=== PATIENT | male | born 1975 | race Caucasian/White ===

== ENCOUNTER 2017-02-24 00:34 | Emergency (ER) | payer OTHER ==
[~2017-02-24] VITALS: Ht 180.3 cm; Wt 86.2 kg
--- NOTE | ~2017-02-24 | EKG ---
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
[2017-02-24 03:04] LABS: ABSOLUTE NEUTROPHILS 6.8 thou/uL (1.4-8.2); BASOPHILS 0.7 % (0.0-2.0); EOSINOPHILS 2.2 % (0.0-3.0); HEMOGLOBIN 16.6 gm/dL (14.0-18.0); LYMPHOCYTES 21.2 % (24.0-44.0); MCH 31.9 pg (26.0-34.0); MCHC 34.6 g/dL (28.0-37.0); MCV 92.2 fL (80.0-100.0); MONOCYTES 8.2 % (1.0-8.0); PLATELET COUNT 186 thou/uL (150-400); POLYS 67.7 % (36.0-66.0); RBC 5.21 mil/uL (4.50-6.00); RDW 12.8 % (10.5-14.5)
[2017-02-24 03:07] LABS: MANUAL DIFF NO
[2017-02-24 03:11] LABS: ANION GAP 9 mmol/L (7-16); BUN 5 mg/dL (7-18); CALCIUM 8.8 mg/dL (8.5-10.1); CHLORIDE 100 mmol/L (98-107); CO2 27 mmol/L (21-32); CREATININE 0.9 mg/dL (0.7-1.3); GLUCOSE 117 mg/dL (74-106); POTASSIUM 3.9 mmol/L (3.5-5.1); SODIUM 136 mmol/L (136-145)
[2017-02-24 03:20] LABS: TROPONIN-I < 0.04 ng/mL (<0.04-0.07)
[2017-02-24] MEDS ORDERED: ACETAMINOPHEN-1 EAC1 PO (04:47)
[2017-02-24] MEDS ORDERED: COLACE100 MG PO (04:47)
[2017-02-24] MEDS ORDERED: NAPROSYN500 MG PO (04:47)
[2017-02-24] MEDS ORDERED: FLEXERIL PO (04:47)
[2017-02-24 05:07] VITALS: BP 141/94
== END 2017-02-24 05:09 | disposition home or self-care (01) ==
LOC: ER 00:34
PROVIDERS: Emergency Medicine
DX: R07.89 Other chest pain (principal); J45.909 Unspecified asthma, uncomplicated; F10.99 Alcohol use, unspecified with unspecified alcohol-induced disorder

== ENCOUNTER 2017-06-12 12:22 | Emergency (ER) | payer OTHER ==
[~2017-06-12] VITALS: Ht 180.3 cm; Wt 86.2 kg
--- NOTE | ~2017-06-12 | EKG ---
[place] [address] [employer] 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[employer] : 1975 Requested By: Angie Diaz Order Number: [id number] MD: Nicholas Hopper Measurements Intervals [place] Rate: 99 P: 68 [place]: 131 QRS: 15 QRSD: 110 T: 129 QT: 361 QTc: 464 Interpretive Statements Sinus rhythm Left atrial enlargement LVH with secondary repolarization abnormality Anterior ST elevation, probably due to LVH Compared to ECG 02/24/2017 02:50:10 EKG unchanged from prior Electronically Signed On 06-12-2017 17:30:22 RADIOLOGY PHYSICIAN by Nicholas Hopper [email or web address] <ELECTRONICALLY SIGNED> By: Nicholas Hopper MD 06/12/17 8260 1231 1231 Nicholas Hopper MD /GABRIEL
[~2017-06-12 12:22] MED LIST: ACETAMINOPHEN-1 EAC1 PO; COLACE100 MG PO; FLEXERIL PO; NAPROSYN500 MG PO
[2017-06-12 13:39] LABS: ABSOLUTE NEUTROPHILS 7.6 thou/uL (1.4-8.2); EOSINOPHILS 2.1 % (0.0-3.0); HEMATOCRIT 49.1 % (42.0-52.0); HEMOGLOBIN 17.3 gm/dL (14.0-18.0); LYMPHOCYTES 16.4 % (24.0-44.0); MCH 32.2 pg (26.0-34.0); MCHC 35.2 g/dL (28.0-37.0); MCV 91.6 fL (80.0-100.0); MONOCYTES 5.9 % (1.0-8.0); PLATELET COUNT 191 thou/uL (150-400); POLYS 74.6 % (36.0-66.0); RBC 5.36 mil/uL (4.50-6.00); RDW 12.7 % (10.5-14.5); WBC 10.2 thou/uL (4.0-11.0)
[2017-06-12 13:47] LABS: ANION GAP 10 mmol/L (7-16); BUN 7 mg/dL (7-18); CALCIUM 9.2 mg/dL (8.5-10.1); CHLORIDE 102 mmol/L (98-107); CO2 26 mmol/L (21-32); GLUCOSE 110 mg/dL (74-106); POTASSIUM 4.2 mmol/L (3.5-5.1); SODIUM 138 mmol/L (136-145)
[2017-06-12 13:55] LABS: ALBUMIN 3.6 g/dL (3.4-5.0); SGOT 72 U/L (15-37); SGPT 124 U/L (30-65); TOTAL BILIRUBIN 0.5 mg/dL (<0.1-1.0); TOTAL PROTEIN 7.3 g/dL (6.4-8.2); TROPONIN-I < 0.04 ng/mL (<0.06)
[2017-06-12] MEDS ORDERED: ACETAMINOPHEN-1 EAC1 PO (15:54)
[2017-06-12] MEDS ORDERED: CYCLOBENZAPRINE5 MG PO (15:54)
[2017-06-12] MEDS ORDERED: PREDNISONE 20 M20 MG PO (15:54)
== END 2017-06-12 16:59 | disposition home or self-care (01) ==
LOC: ER 12:22
PROVIDERS: Physician Assistant
DX: M54.9 Dorsalgia, unspecified (principal); R10.9 Unspecified abdominal pain; R07.9 Chest pain, unspecified; J45.909 Unspecified asthma, uncomplicated; I10 Essential (primary) hypertension; F17.210 Nicotine dependence, cigarettes, uncomplicated

== ENCOUNTER 2017-11-30 09:13 | Emergency (ER) | payer OTHER ==
[~2017-11-30] VITALS: Ht 177.8 cm; Wt 86.2 kg
[~2017-11-30 09:13] MED LIST changes: +CYCLOBENZAPRINE5 MG PO; +PREDNISONE 20 M20 MG PO
[2017-11-30 09:48] LABS: ABSOLUTE NEUTROPHILS 3.6 thou/uL (1.4-8.2); BASOPHILS 1.2 % (0.0-2.0); EOSINOPHILS 2.8 % (0.0-3.0); HEMATOCRIT 47.9 % (42.0-52.0); HEMOGLOBIN 16.8 gm/dL (14.0-18.0); LYMPHOCYTES 27.2 % (24.0-44.0); MCH 32.5 pg (26.0-34.0); MCHC 35.2 g/dL (28.0-37.0); MCV 92.3 fL (80.0-100.0); MONOCYTES 9.6 % (1.0-8.0); PLATELET COUNT 199 thou/uL (150-400); POLYS 59.2 % (36.0-66.0); RBC 5.18 mil/uL (4.50-6.00); RDW 12.3 % (10.5-14.5)
[2017-11-30 09:55] LABS: CALCIUM 8.8 mg/dL (8.5-10.1); CREATININE 0.9 mg/dL (0.7-1.3); POTASSIUM 3.6 mmol/L (3.5-5.1)
[2017-11-30] MEDS ORDERED: LISINOPRIL5 MG PO ×2 (10:17→10:38)
[2017-11-30 10:51] VITALS: BP 165/99
== END 2017-11-30 10:52 | disposition home or self-care (01) ==
LOC: ER 09:13
PROVIDERS: Physician Assistant
DX: R20.2 Paresthesia of skin (principal); F10.10 Alcohol abuse, uncomplicated; F17.210 Nicotine dependence, cigarettes, uncomplicated; F41.9 Anxiety disorder, unspecified; I10 Essential (primary) hypertension; J45.909 Unspecified asthma, uncomplicated

== ENCOUNTER 2018-03-01 07:37 | Emergency (ER) | payer OTHER ==
[~2018-03-01] VITALS: Ht 182.9 cm; Wt 81.7 kg
[~2018-03-01 07:37] MED LIST changes: +LISINOPRIL5 MG PO
[2018-03-01 08:37] LABS: ABSOLUTE NEUTROPHILS 3.9 thou/uL (1.4-8.2); BASOPHILS 0.9 % (0.0-2.0); HEMATOCRIT 50.7 % (42.0-52.0); HEMOGLOBIN 17.4 gm/dL (14.0-18.0); LYMPHOCYTES 29.3 % (24.0-44.0); MCH 32.6 pg (26.0-34.0); MCHC 34.3 g/dL (28.0-37.0); MCV 94.9 fL (80.0-100.0); MONOCYTES 10.2 % (1.0-8.0); PLATELET COUNT 181 thou/uL (150-400); POLYS 56.6 % (36.0-66.0); RBC 5.34 mil/uL (4.50-6.00); RDW 12.9 % (10.5-14.5)
[2018-03-01 08:38] LABS: CALCIUM 9.6 mg/dL (8.5-10.1); CREATININE 0.9 mg/dL (0.7-1.3)
[2018-03-01 08:43] LABS: ALBUMIN 3.3 g/dL (3.4-5.0); TOTAL BILIRUBIN 0.6 mg/dL (<0.1-1.0); TOTAL PROTEIN 7.1 g/dL (6.4-8.2)
[2018-03-01 08:43] LABS: URINE BILIRUBIN 1+ (Negative); URINE BLOOD NEGATIVE (Negative); URINE CLARITY CLEAR; URINE COLOR YELLOW; URINE GLUCOSE-RANDOM* NEGATIVE (Negative); URINE KETONES NEGATIVE (Negative); URINE LEUKOCYTES-REFLEX NEGATIVE (Negative); URINE NITRITE-REFLEX NEGATIVE (Negative); URINE PROTEIN (DIPSTICK) NEGATIVE (Negative); URINE SPECIFIC GRAVITY >= 1.030 (1.005-1.035)
[2018-03-01 08:47] LABS: ICTOTEST (BILI CONFIRMATORY) Positive (Negative)
[2018-03-01 10:15] VITALS: BP 152/96
== END 2018-03-01 10:34 | disposition home or self-care (01) ==
LOC: ER 07:37
PROVIDERS: Student in an Organized Health Care Education/Training Program
DX: K42.9 Umbilical hernia without obstruction or gangrene (principal); J45.909 Unspecified asthma, uncomplicated; I10 Essential (primary) hypertension; F17.210 Nicotine dependence, cigarettes, uncomplicated

== ENCOUNTER 2018-06-21 21:50 | Emergency (ER) | payer OTHER ==
[~2018-06-21] VITALS: Ht 180.3 cm; Wt 81.7 kg
[2018-06-21 21:50] VITALS: BP 171/111
[2018-06-21] MEDS ORDERED: NORCO 5-325 TA1 EACH PO (22:23)
== END 2018-06-21 23:24 | disposition home or self-care (01) ==
LOC: ER 21:50
DX: S62.396A Other fracture of fifth metacarpal bone, right hand, initial encounter for closed fracture (principal); F17.210 Nicotine dependence, cigarettes, uncomplicated; I10 Essential (primary) hypertension; J45.909 Unspecified asthma, uncomplicated; F41.9 Anxiety disorder, unspecified; W22.8XXA Striking against or struck by other objects, initial encounter; Y92.000 Kitchen of unspecified non-institutional (private) residence as the place of occurrence of the external cause; Y93.89 Activity, other specified; Y99.8 Other external cause status